=== PATIENT | female | born 1940 | race Caucasian/White ===

== ENCOUNTER 2017-08-20 09:57 | Outpatient (CLI) | payer OTHER | END 2017-08-20 11:22 | disposition home or self-care (01) | LOC: MRI 09:57 | DX: S83.202A Bucket-handle tear of unspecified meniscus, current injury, unspecified knee, initial encounter (principal); R22.42 Localized swelling, mass and lump, left lower limb; M25.862 Other specified joint disorders, left knee; G61.9 Inflammatory polyneuropathy, unspecified; M54.5 Low back pain | CPT/HCPCS: 72148; 73721 ==

== ENCOUNTER 2018-01-30 09:21 | Outpatient (CLI) | payer OTHER | END 2018-01-30 10:27 | disposition home or self-care (01) | LOC: MRI 09:21 | DX: M75.51 Bursitis of right shoulder (principal) | CPT/HCPCS: 73221 ==

== ENCOUNTER 2018-04-10 12:29 | Outpatient (CLI) | payer OTHER | END 2018-04-10 15:00 | disposition home or self-care (01) | LOC: MRI 12:29 | DX: M48.07 Spinal stenosis, lumbosacral region (principal) | CPT/HCPCS: 72148 ==

== ENCOUNTER 2019-03-24 09:40 | Outpatient (CLI) | payer OTHER | END 2019-03-25 14:41 | disposition home or self-care (01) | LOC: MRI 09:40 | DX: G95.20 Unspecified cord compression (principal); M19.91 Primary osteoarthritis, unspecified site; M81.0 Age-related osteoporosis without current pathological fracture; M10.49 Other secondary gout, multiple sites; M32.8 Other forms of systemic lupus erythematosus | CPT/HCPCS: 72148; 73721 ==